=== PATIENT | female | born 1970 | race Caucasian/White ===

== ENCOUNTER → 2021-09-02 | Outpatient (CLI) | payer BC ==
[~2021-09-02] MED LIST: LEVSOD25 PO; LISI5 PO; METF500 PO; OMEP20ER PO; TRAM50 PO
[2021-09-02 15:45] LABS: BASOPHILS ABSOLUTE AUTO 0.02 K/mm3 (0.00-0.23); BASOPHILS PERCENT AUTO 0 % (0-2); EOSINOPHILS ABSOLUTE AUTO 0.03 K/mm3 (0.00-0.68); EOSINOPHILS PERCENT AUTO 1 % (0-6); Hematocrit 40.4 % (33.0-51.0); Hemoglobin 13.2 g/dL (11.5-16.0); IMMATURE GRAN ABSOLUTE AUTO 0.02 K/mm3 (0.00-0.10); IMMATURE GRAN PERCENT AUTO 0 % (0-1); LYMPHOCYTES ABSOLUTE AUTO 0.74 K/mm3 (0.84-5.20); LYMPHOCYTES PERCENT AUTO 16 % (21-46); MONOCYTES ABSOLUTE AUTO 0.26 K/mm3 (0.16-1.47); MONOCYTES PERCENT AUTO 6 % (4-13); Mean Corpuscular HGB Conc 32.7 g/dL (31.5-36.5); Mean Corpuscular Volume 80 fL (80-100); Mean Platelet Volume 10.5 fL (9.1-12.4); NEUTROPHILS PERCENT AUTO 78 % (41-73); Platelet Count 253 K/mm3 (150-400); RDW Coefficient Variation 14.6 % (11.7-14.2); RDW Standard Deviation 41.9 fL (35.1-46.3); Red Blood Cell Count 5.08 M/mm3 (3.80-5.20); White Blood Cell Count 4.77 K/mm3 (4.00-11.30)
[2021-09-02 16:01] LABS: Alanine Aminotransfer (ALT/SGP 34 U/L (12-78); Albumin, Blood 3.4 g/dL (3.4-5.0); Albumin/Globulin Ratio 0.7 (0.8-1.8); Alk Phos 63 U/L (40-126); Anion Gap 14 mmol/L (6-16); Aspartate Aminotrans (AST/SGOT 29 U/L (12-37); Bilirubin, Total 0.5 mg/dL (0.1-1.0); Blood Urea Nitrogen 15 mg/dL (8-24); Bun/Creatinine Ratio 16.5 (12.0-20.0); CO2, Blood 25 mmol/L (21-32); Calcium, Blood 9.3 mg/dL (8.5-10.1); Chloride, Blood 102 mmol/L (98-108); Creatinine, Blood 0.91 mg/dL (0.40-1.00); Globulin, Blood 5.1 g/dL (2.2-4.0); Glomerular Filtration Rate >60 (60-); Glucose, Blood 156 mg/dL (70-99); Potassium, Blood 3.9 mmol/L (3.5-5.5); Sodium, Blood 141 mmol/L (136-145); Total Protein, Blood 8.5 g/dL (6.4-8.2)
== END | disposition home or self-care (01) ==
LOC: LAB SHORT 15:41 → LAB 15:41
PROVIDERS: Physician Assistant
DX: R09.02 Hypoxemia (principal)
CPT/HCPCS: 80053; 85025; 85379

== ENCOUNTER 2023-07-29 06:56 | Emergency (ER) | payer OTHER, BC ==
[~2023-07-29] VITALS: Ht 165.1 cm; Wt 143.8 kg
[2023-07-29] MEDS ORDERED: OMEP20ER PO (07:13)
[2023-07-29] MEDS ORDERED: JARDIANCE10 MG PO (07:13)
[2023-07-29] MEDS ORDERED: ESCI20 PO (07:13)
[2023-07-29] MEDS ORDERED: AMLODIPINE BESY10 MG PO (07:13)
[2023-07-29] MEDS ORDERED: ROSUVASTATIN CA40 MG PO (07:14)
[2023-07-29] MEDS ORDERED: CARVEDILOL25 M9 PO (07:14)
[2023-07-29] MEDS ORDERED: GLUCOPHAGE1000 M1 PO (07:14)
[2023-07-29] MEDS ORDERED: CODACE30 PO (09:21)
[2023-07-29 09:30] VITALS: BP 118/69
== END 2023-07-29 09:50 | disposition home or self-care (01) ==
LOC: ER 06:56
DX: S46.911A Strain of unspecified muscle, fascia and tendon at shoulder and upper arm level, right arm, initial encounter (principal); W01.10XA Fall on same level from slipping, tripping and stumbling with subsequent striking against unspecified object, initial encounter; I10 Essential (primary) hypertension; E03.9 Hypothyroidism, unspecified; G47.30 Sleep apnea, unspecified
CPT/HCPCS: 73030; 99283-25; A9270

== ENCOUNTER → 2024-03-01 | Outpatient (CLI) | payer BC ==
[~2024-03-01] MED LIST changes: +AMLODIPINE BESY10 MG PO; +CARVEDILOL25 M9 PO; +CODACE30 PO; +ESCI20 PO; +GLUCOPHAGE1000 M1 PO; +JARDIANCE10 MG PO; +ROSUVASTATIN CA40 MG PO
== END ==
LOC: LAB 17:21 → LAB SHORT 17:21
DX: B37.31 Acute candidiasis of vulva and vagina (principal)
CPT/HCPCS: 87077; 87086; 87186

== ENCOUNTER → 2025-09-26 | Outpatient (CLI) | payer OTHER ==
[2025-09-26 15:03] LABS: Bacterial Vaginosis PCR Negative (NEGATIVE)
[2025-09-26 15:36] LABS: Candida Group, PCR DETECTED (NOT DETECT); Candida glabrata-krusei, PCR DETECTED (NOT DETECT)
== END ==
LOC: LAB SHORT 09:30 → LAB 09:30
DX: N89.8 Other specified noninflammatory disorders of vagina (principal)
CPT/HCPCS: 81515